=== PATIENT | female | born 1990 | race Caucasian/White ===

== ENCOUNTER 2017-06-30 17:37 | Emergency (ER) | payer BC ==
[2017-06-30] MEDS ORDERED: TRIMOX PO ONE (19:41)
[2017-06-30] MEDS ORDERED: MOTRIN PO ONE (19:41)
--- NOTE | 2017-06-30 19:46 | Emergency Department Report ---
Minor Respiratory - HPI Chief Complaint: Sore Throat Stated Complaint: FEVER,CHILLS/SORE THROAT Time Seen by Provider: 06/30/17 19:41 Duration: 3 Days Pain Location: Throat Severity: mild Minor Respiratory: Yes Sore Throat, Yes Able to Tolerate Fluids, No Rhinorrhea, No Ear Pain, No Cough, No Sick Contacts, No Hemoptysis, No Chest Pain, No Shortness of Breath, No Fever ED Review of Systems ROS: Stated complaint: FEVER,CHILLS/SORE THROAT Other details as noted in HPI Comment: All other systems reviewed and negative Constitutional: chills, fever ENT: throat pain ED Past Medical Hx - Past Medical History Previous Medical History?: Yes Hx Asthma: Yes - Surgical History Past Surgical History?: Yes Additional Surgical History: Left hand surgery - Social History Smoking Status: Never Smoker Substance Use Type: Non Opiate Pain - Medications Home Medications: Home Medications Medication Instructions Recorded Confirmed Last Taken Type Amoxicillin 500 mg PO BID #20 capsule 06/30/17 Unknown Rx Minor Respiratory Exam - Exam General: Vital signs noted. No distress. Alert and acting appropriately. HEENT: Yes Pharyngeal Exudates, Yes Moist Mucous Membranes, No Pharyngeal Erythema, No Rhinorrhea, No Conjuctival Injection, No Frontal Tenderness, No Maxillary Tenderness Ear: Neither TM Bulge, Neither TM Erythema, Neither EAC Pain, Neither EAC Discharge Neck: Yes Supple, No Adenopathy Lungs: Yes Good Air Exchange, Yes Other Abnormal Lung Sounds, No Wheezes, No Ronchi, No Stridor, No Cough, No Labored Respirations, No Retractions, No Use of Accessory Muscles Heart: Yes Regular, No Murmur Abdomen: Yes Normal Bowel Sounds, No Tenderness, No Peritoneal Signs Skin: No Rash, No Edema Neurologic: Alert and oriented, no deficits. Musculoskeletal: Unremarkable. ED Course Vital Signs 06/30/17 17:41 Temperature 98.8 F Pulse Rate 93 H Respiratory 20 Rate Blood Pressure 112/83 O2 Sat by Pulse 99 Oximetry - Reevaluation(s) Reevaluation #1: 06/30/17 20:23 TO ER W SORE THROAT SINUS PRESSURE POS PAIN FRONTAL AND MAX SINUS NO PURULENT DRAINAGE SUB REPORTS OF FEVER NON HERE TAKING PO NON TOXIC OTHERWISE HEALTHY THROAT RED NO EXUDATE MALODOROUS SOME REPORTS OF HEADACHE MEDICATED DC HOME W AMOX AND OUTPATIENT FOLLOW UP. ED Medical Decision Making - Medical Decision Making SEE NOTE - Differential Diagnosis URTI Critical care attestation.: If time is entered above; I have spent that time in minutes in the direct care of this critically ill patient, excluding procedure time. ED Disposition Clinical Impression: Pharyngitis Disposition: - TO HOME OR SELFCARE Is pt being admited?: No Does the pt Need Aspirin: No Condition: Stable Instructions: Pharyngitis (ED) Additional Instructions: REST FLUIDS MEDS ORDERED FOLLOW UP PCP THIS WEEK TO BE SURE YOU ARE GETTING BETTER Prescriptions: Amoxicillin 500 mg PO BID #20 capsule Referrals: PRIMARY CARE, [Primary Care Provider] - 3-5 Days NAI SEVILLA MD [Staff Physician] - 3-5 Days Time of Disposition: 19:43
[2017-06-30] MEDS ORDERED: DELTASONE PO ONE (20:01)
[2017-06-30 20:40] VITALS: BP 122/81
== END 2017-06-30 20:05 | disposition home or self-care (01) ==
LOC: ED 17:37
DX: J02.9 Acute pharyngitis, unspecified (principal); J45.909 Unspecified asthma, uncomplicated; Z98.890 Other specified postprocedural states
CPT/HCPCS: 99282; J7512